=== PATIENT | female | born 1955 | race American Indian/Alaskan Native ===

== ENCOUNTER 2019-06-24 08:42 | Outpatient (CLI) | payer MEDICARE ==
--- NOTE | 2019-06-24 10:04 | Mammography Report ---
DIGITAL SCREENING MAMMOGRAM WITH CAD, 06/24/2019 INDICATION: Routine screening mammography. History of right breast cancer status post right partial m astectomy 02/10/2019 TECHNIQUE: Digital bilateral 2D mammography was obtained in the craniocaudal and mediolateral obliq ue projections. This examination was interpreted with the benefit of Computer-Aided Detection analysi s. COMPARISON: 12/23/2018 right mammogram and no comparison mammogram of the left breast FINDINGS: Breast Density: The breasts are heterogeneously dense, which may obscure small masses. Right upper outer postsurgical scar is new compared to the last mammogram. A right upper outer biopsy clip is distant from the scar and there is no mammographic abnormality at the clip. Bilateral circum scribed asymmetries require additional imaging. No suspicious calcifications of either breast. IMPRESSION: Bilateral asymmetries require additional imaging. Recommend recall for bilateral spot com pression views and bilateral breast ultrasound if needed. Follow up recommendation: Routine yearly Category 0: Incomplete. Needs additional imaging evaluation and/or prior mammograms for comparison. A "normal" or negative report should not discourage follow up or biopsy of a clinically significant f inding. A written summary of these findings will be mailed to the patient. The patient will be entered into a mammography reporting system which will generate a reminder letter for the patient's next appointmen t at the appropriate interval. The [employer] recommends yearly mammograms starting at age 40 and continuing as l noel as a woman is in good health. Breast MRI is recommended for women with an approximate 20-25% or greater lifetime risk of breast cancer, including women with a strong family history of breast or ova cara cancer or who have been treated for Hodgkin's disease. Signer Name: Eliezer Hernandez MD Signed: 06/24/2019 9:59 AM Workstation Name: [id number]
== END 2019-06-24 08:43 | disposition home or self-care (01) ==
LOC: SPVWC 08:42
PROVIDERS: ATTEND Surgery
DX: Z12.31 Encounter for screening mammogram for malignant neoplasm of breast (principal); N64.89 Other specified disorders of breast
CPT/HCPCS: 77067

== ENCOUNTER 2019-07-08 08:19 | Outpatient (CLI) | payer MEDICARE ==
--- NOTE | 2019-07-08 10:50 | Mammography Report ---
BILATERAL DIGITAL DIAGNOSTIC MAMMOGRAM WITH CAD 07/08/2019 BILATERAL COMPLETE BREAST ULTRASOUND INDICATION: Recall to evaluate bilateral mammographic asymmetries. f/u abnormal mammogram TECHNIQUE: Digital bilateral mammographic imaging was performed. Spot compression views were obtaine d. Complete ultrasound of all four (4) quadrants was performed. This examination was interpreted with the benefit of Computer-Aided Detection (CAD) analysis. COMPARISON: 06/24/2019 screening mammogram FINDINGS: Breast Density: The breasts are heterogeneously dense, which may obscure small masses. MAMMOGRAPHIC FINDINGS: Bilateral mammographic asymmetries persist with spot compression. ULTRASOUND FINDINGS: Complete sonographic evaluation of all 4 quadrants and retroareolar region was p erformed. Ultrasound of the right breast demonstrated an oval complex cyst at 9:30 o'clock 3 cm from the nippl e measuring 7 x 5 x 6 mm. A 4 mm benign cyst at 10:00 8 cm from the nipple. Ultrasound of the left breast demonstrated an irregular hypoechoic solid mass at 6:00 4 cm from the n ipple measuring 6 x 4 x 7 mm. It correlates with a persistent mammographic asymmetry on the CC spot c ompression view. Several small scattered benign cysts of the left breast. Ultrasound of the left axil la demonstrated a suspicious lymph node with no central fat measuring 2.0 x 1.9 x 2.2 cm. IMPRESSION: A suspicious 6 x 4 x 7 mm left breast mass at 6:00 4 cm from the nipple and a suspicious left axillary lymph node. Recommend ultrasound-guided needle biopsies at both sites. Benign cysts of the right breast. I discussed the findings and the recommendation for 2 needle biopsies on the left side with the patie nt at the time of the exam. Follow up recommendation: Biopsy BI-RADS Category 4: Suspicious for Malignancy. A "normal" or negative report should not discourage follow up or biopsy of a clinically significant f inding. A written summary of these findings will be mailed to the patient. The patient will be entered into a mammography reporting system which will generate a reminder letter for the patient's next appointmen t at the appropriate interval. According to the [employer], yearly mammograms are recommended starting at age 40 and continuing as long as a woman is in good health. Breast MRI is recommended for women with an villa roximately 20-25% or greater lifetime risk of breast cancer, including women with a strong family his tory of breast or ovarian cancer and women who have been treated for Hodgkin's disease. Signer Name: Eliezer Hernandez MD Signed: 07/08/2019 10:45 AM Workstation Name: [id number]
== END 2019-07-08 08:20 | disposition home or self-care (01) ==
LOC: SPVWC 08:19
PROVIDERS: ATTEND Surgery
DX: N60.01 Solitary cyst of right breast (principal)
CPT/HCPCS: 77066

== ENCOUNTER 2019-07-23 08:05 | Outpatient (CLI) | payer MEDICARE ==
--- NOTE | 2019-07-23 11:47 | Ultrasound Report ---
ULTRASOUND-GUIDED NEEDLE CORE BIOPSY LEFT BREAST WITH CLIP PLACEMENT AND ULTRASOUND-GUIDED NEEDLE COR E BIOPSY LEFT AXILLARY LYMPH NODE WITH CLIP PLACEMENT CLINICAL: A suspicious 7 mm irregular left breast mass at 6:00 4 cm from the nipple. FINDINGS: The procedure was explained to the patient and informed consent was obtained. Ultrasound demonstrated the previously identified lesion and the suspicious left axillary lymph node. . I marked the breast with a felt tip marker and a timeout was called. The skin was prepped with Chloro -Prep and anesthetized with 1% lidocaine. Using ultrasound guidance, 2% lidocaine with epinephrine for deep anesthesia and an 18-gauge Achieve biopsy device, needle core biopsy of the left axillary lymph node was performed. 3 cores were obtaine d and placed in formalin. A hydromark clip was placed within the lymph node. Hemostasis was achieved with minimal effort. Attention was then given to the left breast mass. Needle core biopsy was performed through small dermatotomy at 6:00 4 cm from the nipple using ultraso und guidance, 2% lidocaine with epinephrine for deep anesthesia and a 14-gauge Achieve biopsy device. Multiple cores were obtained and placed in formalin. A hydromark clip was deployed within the lesion . The patient tolerated the procedure well and there were no apparent complications. Hemostasis was ach ieved with minimal effort and sterile dressings were applied. A post procedure mammogram demonstrated successful clip deployment. However, the clip position is dis cordant with the original mammographic density which is more lateral than the clip by approximately 4 cm. She left the department in good condition and was given instructions for wound care and follow-u p. IMPRESSION: 1. Uncomplicated ultrasound guided needle core biopsy with clip placement left axillary lymph node an d uncomplicated ultrasound-guided needle core biopsy with clip placement left breast. 2. Discordant clip placement suggests that there may be an additional lesion to biopsy. Further francis p would depend upon the results of this biopsy. Signer Name: Eliezer Hernandez MD Signed: 07/23/2019 11:43 AM Workstation Name: [id number]
--- NOTE | 2019-07-23 13:11 | Mammography Report ---
DIGITAL DIAGNOSTIC MAMMOGRAM WITH CAD, 07/23/2019 INDICATION: POST BX, LT CLIP TECHNIQUE: Digital left mammographic imaging was performed. This examination was interpreted with the benefit of Computer-aided Detection analysis. COMPARISON: 07/08/2019 FINDINGS: Breast Density: The breast is heterogeneously dense, which may obscure small masses. An inner biopsy clip correlates with the site of the ultrasound biopsy. The clip location is approxim ately 4 cm medial to the originally described mammographic abnormality. IMPRESSION: Successful clip deployment but discordant clip location compared to the original mammogra phic abnormality. The need for further imaging may depend upon the result of this biopsy. Follow up recommendation: No recall. Post biopsy imaging. A "normal" or negative report should not discourage follow up or biopsy of a clinically significant f inding. A written summary of these findings will be mailed to the patient. The patient will be entered into a mammography reporting system which will generate a reminder letter for the patient's next appointmen t at the appropriate interval. According to the [employer], yearly mammograms are recommended starting at age 40 and continuing as long as a woman is in good health. Breast MRI is recommended for women with an villa roximately 20-25% or greater lifetime risk of breast cancer, including women with a strong family his tory of breast or ovarian cancer and women who have been treated for Hodgkin's disease. Signer Name: Eliezer Hernandez MD Signed: 07/23/2019 1:07 PM Workstation Name: [id number]
== END 2019-07-23 08:06 | disposition home or self-care (01) ==
LOC: SPVWC 08:05
PROVIDERS: ATTEND Surgery
DX: N63.24 Unspecified lump in the left breast, lower inner quadrant (principal); I89.8 Other specified noninfective disorders of lymphatic vessels and lymph nodes; R92.8 Other abnormal and inconclusive findings on diagnostic imaging of breast; E78.00 Pure hypercholesterolemia, unspecified; I10 Essential (primary) hypertension; G47.30 Sleep apnea, unspecified; K21.9 Gastro-esophageal reflux disease without esophagitis; E66.9 Obesity, unspecified; E05.90 Thyrotoxicosis, unspecified without thyrotoxic crisis or storm; Z79.899 Other long term (current) drug therapy; Z88.5 Allergy status to narcotic agent; Z90.710 Acquired absence of both cervix and uterus; Z96.653 Presence of artificial knee joint, bilateral; Z98.890 Other specified postprocedural states
CPT/HCPCS: 38505; 76942; 88305

== ENCOUNTER 2019-09-03 10:19 | Outpatient (CLI) | payer MEDICARE ==
--- NOTE | 2019-09-03 17:01 | Magnetic Resonance Report ---
BILATERAL BREAST MR WITHOUT AND WITH GADOLINIUM INDICATION: Recent benign ultrasound-guided left needle biopsy and benign ultrasound-guided biopsy o f a left axillary lymph node. This study is being done because the clip location was discordant with the original mammographic asymmetry identified on 07/08/2019. She also has a history of a benign surgi shorty excision for fibroadenoma. COMPARISONS: 07/08/2019 bilateral mammogram and bilateral breast ultrasound TECHNIQUE: Axial 1.0 mm T1 without, axial high-resolution 2.0 mm T2 and axial 1.0 mm dynamic vibrant high-resolution postcontrast T1 fat saturation sequences on a 1.5 Chapis magnet. The examination was p erformed with an 8-channel dedicated [employer] breast coil. Post-processing with CAD and subtraction was performed on an [employer] workstation. 19 cc of MultiHance was injected without incident for the con trast portion of the exam. Consent was obtained prior to the administration of the contrast. FINDINGS: The quality of the exam is somewhat compromised by motion during the contrast portion of th e exam. RIGHT BREAST: Minimal background parenchymal enhancement. No mass or suspicious enhancement. Benign p osterior postsurgical scar at 9:00. No suspicious lymph nodes. LEFT BREAST: Moderate background parenchymal enhancement. The overall enhancement of the left breast is greater than the right with a diffusely more intense enhancement. Color coding is predominantly re d for the left breast and predominantly blue for the right breast. Lesion 1 is an oval enhancing lesi on of the upper inner quadrant 6.4 cm from the nipple and 8.3 cm from the chest wall. This is probabl y a benign intraparenchymal lymph node with heterogeneous enhancement and 51% type III washout. Lesio n 2 is a similar lesion which is probably a benign intraparenchymal lymph node measuring 9.2 x 7.3 x 3.0 mm. Is located in the lower outer quadrant 8.9 cm from the nipple and 5.3 cm from the chest wall. It demonstrates heterogeneous enhancement with 31% type III washout. Lesion 3 is a similar enhancing lesion in the lower outer quadrant 6.9 cm from the nipple and 7.2 cm from the chest wall. It also coulter s morphology typical of a benign intraparenchymal lymph node. It demonstrates heterogeneous enhanceme nt with 22% type III washout. Multiple enhancing lymph nodes in the left axilla. The largest measures 2 cm and correlates with the recently biopsied benign lymph node. IMPRESSION: 1. 3 probably benign lesions in the left breast with characteristics suggestive of benign intraparenc hymal lymph nodes. This pattern fits with the left axillary lymphadenopathy and the overall increased enhancement of the left breast suggestive of a benign process. Recommend targeted left breast ultras ound for evaluation of these 3 lesions. If these lesions are not identified or cannot be confirmed to be benign by ultrasound, recommend 6 month follow-up MRI. 2. Negative right breast with benign postsurgical scar. BI-RADS Category 0: Needs additional imaging A normal MRI does not exclude the presence of some forms of breast malignancy as literature reports s uggest that some forms of ductal carcinoma in situ or lobular carcinoma, particularly, may not be det ected on MRI. The sensitivity and specificity of MRI for cancers under 5 mm may be reduced. MRI does not replace the recommendation for annual conventional mammographic evaluation and should be used as an adjunct to mammography and physical examination as necessary. Signer Name: Eliezer Hernandez MD Signed: 09/03/2019 4:57 PM Workstation Name: [id number]
== END 2019-09-03 10:20 | disposition home or self-care (01) ==
LOC: SPVIMAG 10:19
PROVIDERS: ATTEND Surgery
DX: N64.89 Other specified disorders of breast (principal); R59.0 Localized enlarged lymph nodes; R92.2 Inconclusive mammogram
CPT/HCPCS: A9577; C8908; 77049

== ENCOUNTER 2019-09-23 09:52 | Outpatient (CLI) | payer MEDICARE ==
--- NOTE | 2019-09-24 11:52 | Ultrasound Report ---
LEFT BREAST ULTRASOUND HISTORY: Abnormal left breast MRI COMPARISON: 09/03/2019 MRI FINDINGS: Ultrasound of the left breast demonstrated an irregular solid hypoechoic mass at 10:00 7 cm from the nipple measuring 7 x 6 x 5 mm. It appears to correlate with lesion 1 and does not have feat ures of a benign intramammary lymph node. An oval irregular solid heterogeneous hypoechoic mass at 4: 30 o'clock 5 cm from the nipple measures 11 x 11 x 7 mm. It appears to correlate with lesion 3 on the MRI and does not have features of a benign intramammary lymph node. A biopsy clip at 5:30 o'clock 4 cm from the nipple. An irregular benign cyst at 6:00 5 cm from the nipple measures 5 x 6 x 3 mm. A pr obable complex cyst at 10:00 5 cm from the nipple measures 6 x 3 x 4 mm. IMPRESSION: 1. Suspicious masses at 10:00 7 cm from the nipple and at 4:30 o'clock 5 cm from the nipple. Recommen d ultrasound-guided needle biopsy of these lesions. 2. A probable complex cyst at 10:00 5 cm from the nipple. Recommend ultrasound-guided needle aspirati on. BIRADS 4: Suspicious abnormality. Signer Name: Eliezer Hernandez MD Signed: 09/24/2019 11:48 AM Workstation Name: [id number]
== END 2019-09-23 09:53 | disposition home or self-care (01) ==
LOC: SPVWC 09:52
PROVIDERS: ATTEND Surgery
DX: R92.8 Other abnormal and inconclusive findings on diagnostic imaging of breast (principal)

== ENCOUNTER 2020-01-16 06:58 | Day surgery (SDC) | payer MEDICARE ==
[~2020-01-16 06:58] MED LIST: BACTERIOSTATIC SODIUM CHLORIDE 0.9% 30 ML VIAL INFILTRATI ONE; CELECOXIB 200 MG CAP PO NR; GABAPENTIN 300 MG CAP PO NR; LACTATED RINGERS 1,000 ML IV SCH; MAGNESIUM OXIDE 400 MG TAB PO SCH; MIDAZOLAM 2 MG/2 ML INJ IV NR; ceFAZolin/Water 2 GM/20 ML 2 GM/20 ML SYRINGE IV NR
--- NOTE | 2020-01-16 07:35 | Anesthesia Consultation ---
Anesthesia Consult and Med Hx Date of service: 01/16/20 - Airway Anesthetic Teeth Evaluation: Partials ROM Head & Neck: Adequate Mental/Hyoid Distance: Adequate Mallampati Class: Class II Intubation Access Assessment: Probably Good (previous easy intubation Mil 2) - Pulmonary Exam CTA: Yes - Cardiac Exam Cardiac Exam: RRR - Pre-Operative Health Status ASA Pre-Surgery Classification: ASA3 Proposed Anesthetic Plan: General - Pulmonary Hx Smoking: No Hx Respiratory Symptoms: No Hx Sleep Apnea: Yes (compliant with CPAP) - Cardiovascular System Hx Hypertension: Yes (took amlodipine this morning) Hx Heart Attack/AMI: No Hx Percutaneous Transluminal Coronary Angioplasty (PTCA): No Hx Cardia Arrhythmia: No - Central Nervous System CVA: No - Gastrointestinal Hx Gastroesophageal Reflux Disease: Yes (took protonix this morning) - Endocrine Hx Renal Disease: No Hx Liver Disease: No Hx Insulin Dependent Diabetes: No Hx Non-Insulin Dependent Diabetes: No Hx Hyperthyroidism: Yes (stable on methimazole and propanolol) - Other Systems Hx Obesity: Yes (BMI 35) - Additional Comments Anesthesia Medical History Comments: Will give home dose propanolol in preop
--- NOTE | 2020-01-16 07:35 | Anesthesia Day of Surgery ---
Anesthesia Day of Surgery - Day of Surgery Patient Examined: Yes Patient H&P Reviewed: Yes Patient is NPO: Yes Beta Blockers: Yes (home dose propanolol in preop)
[2020-01-16] MEDS ORDERED: LIDOCAINE (1%) 10 MG/1 ML VIAL 20 ML MDV ONE ×2 (07:38→07:55)
[2020-01-16] MEDS ORDERED: BUPIVACAINE/PF (0.25%) 2.5 MG/ML 10 ML VIAL INFILTRATI ONE ×2 (07:56→08:47)
[2020-01-16] MEDS ORDERED: PROPRANOLOL LA 60 MG CAP PO ONE (08:00)
[2020-01-16] MEDS ORDERED: ONDANSETRON 4 MG/2 ML INJ ONE (08:24)
[2020-01-16] MEDS ORDERED: dexAMETHasone 20 MG/5 ML VIAL ONE (08:24)
[2020-01-16] MEDS ORDERED: LIDOCAINE MPF (2%) 20 MG/1 ML VIAL 5 ML ONE (08:24)
[2020-01-16] MEDS ORDERED: fentaNYL 100 MCG/2 ML INJ ONE (08:25)
[2020-01-16] MEDS ORDERED: propofoL 200 MG/20 ML VIAL IV ONE (08:25)
[2020-01-16] MEDS ORDERED: LIDOCAINE (1%) 10 MG/1 ML VIAL 20 ML MDV INFILTRATI ONE (08:48)
--- NOTE | 2020-01-16 09:18 | Operative Report ---
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 Recommendations are to proceed with left breast excisional biopsy to rule out malignancy. She wished to proceed with the above procedure. Procedure in detail: The patient was taken to radiology for wire placement for localization of known area of concern of both areas. Patient was then taken to the operating room. Gen. anesthesia was administered. Left breast and axilla were prepped and draped in the normal sterile operative fashion. The wires were identified. Timeout was performed. Ultrasound was used as well to identify clips. Attention was then taken towards the left breast at 10:00 position lesion first. A periareolar breast incision was made around the 10:00 position with a 15 blade knife and dissection taken down to the subcutaneous tissues. First began raising of the anterior flap with removal of the wire from the skin with dissection taken down posteriorly past the wire, followed by raising of the inferior flap, medial flap, lateral and superior flap with all flaps taken down posteriorly past the wire. The breast area of concern was appropriately removed posteriorly with the aid of the Bovie cautery. The wire was not encountered. Specimen was marked and then sent to pathology and radiology; radiograph specimen with wire and clip present. Breast cavity was irrigated and hemostasis was obtained. The posterior deep breast tissues were approximated and closed using interrupted 3-0 Vicryl. The subcutaneous tissues were approximated and closed using interrupted 3-0 Vicryl followed by closing of the skin with a running 4-0 Monocryl and skin affix. Attention was then taken towards breast lesion at 4:30 position. A lateral breast incision was made around the 4:00 position with a 15 blade knife and dissection taken down to the subcutaneous tissues. First began raising of the lateral flap with removal of the wire from the skin with dissection taken down posteriorly past the wire, followed by raising of the inferior flap, medial flap, and superior flap with all flaps taken down posteriorly past the wire. The breast area of concern was appropriately removed posteriorly with the aid of the Bovie cautery. The wire was not encountered. Specimen was marked and then sent to pathology and radiology; radiograph specimen with wire and clip present. Breast cavity was irrigated and hemostasis was obtained. The posterior deep breast tissues were approximated and closed using interrupted 3-0 Vicryl. The subcutaneous tissues were approximated and closed using interrupted 3-0 Vicryl followed by closing of the skin with a running 4-0 Monocryl and skin affix. The patient tolerated surgery very well and she was awaken from anesthesia without any complication and transported to PACU in good condition.
--- NOTE | 2020-01-16 09:20 | Short Stay Summary ---
Short Stay Documentation Date of service: 01/16/20 - History H&P: obtained from office - Allergies and Medications Current Medications: Allergies lisinopril Allergy (Verified 01/08/20 12:19) Angioedema gabapentin Adverse Reaction (Verified 01/16/20 07:38) Headache PT STATES SEVERE HEADACHE WITH THIS MED morphine Adverse Reaction (Verified 01/08/20 12:19) Itching nitroglycerin Adverse Reaction (Verified 01/08/20 12:19) Headache oxycodone Adverse Reaction (Verified 01/08/20 12:19) Itching Home Medications Medication Instructions Recorded Confirmed Last Taken Type Albuterol Mdi (or & Nicu Only) 2 puff IH QID PRN 02/04/19 01/08/20 01/16/20 05:30 History [Proair] Methimazole [Tapazole] 10 mg PO DAILY 02/04/19 01/08/20 01/15/20 History Pantoprazole [Protonix] 40 mg PO QDAY 02/04/19 01/08/20 01/16/20 05:30 History Propranolol HCl [Inderal Xl] 120 mg PO DAILY 02/04/19 01/08/20 02/10/19 05:30 History Rosuvastatin Calcium [Crestor] 20 mg PO DAILY 02/04/19 01/08/20 01/15/20 History Triamcinolone 0.1% [Kenalog 0.1% 1 applic TP TID 02/04/19 01/08/20 01/15/20 History OINT] allopurinoL [Zyloprim] 300 mg PO QDAY 02/04/19 01/08/20 01/15/20 History calcitrioL [Rocaltrol] 0.25 mcg PO DAILY 02/04/19 01/08/20 01/15/20 History amLODIPine [Norvasc] 10 mg PO DAILY 01/08/20 01/08/20 01/16/20 05:30 History Active Medications Celecoxib (Celebrex) 200 mg PO PREOP NR Stop: 01/16/20 23:00 Last Admin: 01/16/20 08:45 Dose: 200 mg Documented by: Cefazolin Sodium (Ancef/Sterile Water 2 Gm/20 Ml) 2 gm in 20 mls @ 80 mls/hr IV PREOP NR; Protocol Stop: 01/16/20 23:59 Lactated Ringer's (Lactated Ringers) 1,000 mls @ 100 mls/hr IV DIRECT BEN Stop: 01/16/20 23:59 Magnesium Oxide (Mag-Ox) 400 mg PO PREOP BEN Stop: 01/16/20 23:00 Last Admin: 01/16/20 08:45 Dose: 400 mg Documented by: Midazolam HCl (Versed) 2 mg IV PREOP NR Stop: 01/16/20 23:00 - Brief post op/procedure progress note Date of procedure: 01/16/20 Pre-op diagnosis: Left breast papillomas x2 Post-op diagnosis: same Procedure: Left breast needle localization excisional biopsy Anesthesia: GETA Findings: Left wires and clips present within radiograph specimen Surgeon: GILDA RAM Estimated blood loss: minimal Pathology: list (left breast excisional biopsy) Specimen disposition: to lab Condition: stable - Disposition Condition at discharge: Good Disposition: DC-01 TO HOME OR SELFCARE Short Stay Discharge Plan Activity: other (no heavy lifting) Diet: regular Wound: keep clean and dry (may shower in 48 hours; no baths, pools or lakes; do not rub or scrub incision; wear breast binder) Follow up with: GILDA RAM MD [Staff Physician] - 7 Days Prescriptions: traMADoL [Ultram 50 MG tab] 50 mg PO Q6HR PRN #20 tablet PRN Reason: Pain
[2020-01-16] MEDS ORDERED: BACITRACIN ZINC OINT 28.4 GM TP ONE ×2 (11:31→11:49)
[2020-01-16] MEDS ORDERED: LACTATED RINGERS 1,000 ML ONE (12:10)
--- NOTE | 2020-01-16 14:14 | Post Anesthesia Evaluation ---
- Post Anesthesia Evaluation Patient Participated: Yes Airway Patent: Yes Stable Respiratory Function: Yes Nausea/Vomiting: No Temp > 96.8F: Yes Pain Manageable: Yes Adequeate Hydration: Yes Anesthesia Complications: No
[2020-01-16 15:32] VITALS: BP 125/66
--- NOTE | 2020-01-19 08:07 | Mammography Report ---
Needle localization specimens INDICATION: Evaluation of needle localization specimens FINDINGS/IMPRESSION: There are 2 separate localization wires which are completely contained in each r espective sample. One of the wires also contains a U-shaped clip with variegated ends and the other w vic which is kinked contains a tiny biopsy marker. Both wires are submitted in their entirety and eac h respective marker is completely contained within each sample. Signer Name: Mina Muñoz MD Signed: 01/19/2020 8:03 AM Workstation Name: [id number]
--- NOTE | 2020-01-19 08:11 | Mammography Report ---
Examination: Mammographic guided left breast needle localization CLINICAL INFORMATION: Patient with 4 previous biopsies in the left breast presents for bracketed wire localization. Comparison: Diagnostic imaging from 11/05/2019. PROCEDURE: The risks, benefits and indications to the procedure were discussed with the patient. She agreed to p troy with both verbal and written consent. A timeout procedure was performed using two patient iden tifiers. The breast was prepped with Chlorhexidine 1% in the usual sterile fashion. Approximately 10 cc of Lid ocaine 1% was used for local anesthesia at each site. Under direct digital mammographic guidance, a l ocalization wire was placed in satisfactory position at each respective target with distal tip derrell sing each targeted lesion. Post-biopsy mammogram confirms satisfactory positioning of each localizati on wire. The wires were then secured to the skin with a sterile dressing. One of the wires was placed from a medial approach and the other placed from a lateral approach. The patient tolerated procedure without difficulty. No complications were encountered. IMPRESSION: 1. Satisfactory bracketed wire localization for 2 left breast targets as above. Signer Name: Mina Muñoz MD Signed: 01/19/2020 8:07 AM Workstation Name: [id number]
== END 2020-01-16 13:35 | disposition home or self-care (01) ==
LOC: OR 06:58
PROVIDERS: ATTEND Surgery
DX: D24.2 Benign neoplasm of left breast (principal); Z20.828 Contact with and (suspected) exposure to other viral communicable diseases; E78.00 Pure hypercholesterolemia, unspecified; I10 Essential (primary) hypertension; G47.30 Sleep apnea, unspecified; K21.9 Gastro-esophageal reflux disease without esophagitis; E66.9 Obesity, unspecified; E05.90 Thyrotoxicosis, unspecified without thyrotoxic crisis or storm; Z90.710 Acquired absence of both cervix and uterus; Z88.5 Allergy status to narcotic agent; Z79.899 Other long term (current) drug therapy; Z68.35 Body mass index [BMI] 35.0-35.9, adult; Z96.652 Presence of left artificial knee joint; Z98.890 Other specified postprocedural states; Z88.8 Allergy status to other drugs, medicaments and biological substances
CPT/HCPCS: 19125; 19126; 19281; 19282; 76098; 88307; J0690; J1100; J2250; J2405; J2704; J3010; J7120; U0003

== ENCOUNTER 2020-06-29 08:45 | Outpatient (CLI) | payer MEDICARE ==
--- NOTE | 2020-06-29 09:25 | Mammography Report ---
DIGITAL SCREENING MAMMOGRAM WITH CAD, 06/29/2020 CLINICAL INFORMATION / INDICATION: Routine screening mammography. SCREENING MAMMO TECHNIQUE: Digital bilateral 2D mammography was obtained in the craniocaudal and mediolateral obliqu e projections. This examination was interpreted with the benefit of Computer-Aided Detection analysis . COMPARISON: 06/24/2019 through 01/16/2020. FINDINGS: Breast Density: There are scattered areas of fibroglandular density. Right breast scarring and a right biopsy clip are again noted. There is new scarring in the left ivania st as well as a new left biopsy clip. I see no evidence of a mass or suspicious calcifications. No ne w abnormality is seen. IMPRESSION: No mammographic evidence of malignancy. Follow up recommendation: Routine yearly BI-RADS Category 2: Benign. A "normal" or negative report should not discourage follow up or biopsy of a clinically significant f inding. A written summary of these findings will be mailed to the patient. The patient will be entered into a mammography reporting system which will generate a reminder letter for the patient's next appointmen t at the appropriate interval. The [employer] recommends yearly mammograms starting at age 40 and continuing as l noel as a woman is in good health. Breast MRI is recommended for women with an approximate 20-25% or greater lifetime risk of breast cancer, including women with a strong family history of breast or ova cara cancer or who have been treated for Hodgkin's disease. Signer Name: Geronimo Rain MD Signed: 06/29/2020 9:20 AM Workstation Name: [id number]
== END 2020-06-29 08:46 | disposition home or self-care (01) ==
LOC: SPVWC 08:45
PROVIDERS: ATTEND Surgery
DX: Z12.31 Encounter for screening mammogram for malignant neoplasm of breast (principal)
CPT/HCPCS: 77067

== ENCOUNTER 2020-07-28 09:38 | Outpatient (CLI) | payer MEDICARE ==
--- NOTE | 2020-07-28 13:08 | Magnetic Resonance Report ---
Bilateral breast MR without and with contrast. History: History of left breast papilloma with focal atypia. Status post bilateral surgical excisions . Comparison: 06/29/2020, 09/03/2019. Technique: Multiplanar multisequence MR images of the breast were obtained before and after the intra venous administration of 17 mL of Clariscan contrast agent. Post processing analysis and review was p erformed on a separate computer workstation. Findings: Breast composition is scattered fibroglandular. There is moderate to marked background parenchymal en hancement which along with the presence of multiple scattered enhancing foci decreases the sensitivit y of this exam. RIGHT BREAST: Stable area of postsurgical change in the right upper outer posterior breast. No discre te enhancing mass, dominant focus, or other abnormal enhancement is identified within the right breas t. LEFT BREAST: Postsurgical changes within the lateral posterior and medial mid breast are noted. No di screte enhancing mass, dominant focus, or other abnormal enhancement is identified within either ivania st. Multiple enlarged left axillary lymph nodes are again noted which measure up to 2.1 x 2.1 cm. These c an be seen on the 09/03/2019 MRI and there appears to be little change. Of note, patient has a history of left axillary lymph node biopsy which was found to be benign. No enlarged right axillary lymph no mayco. No abnormal internal mammary lymph nodes. Impression: Postsurgical changes in both breasts without abnormal enhancement to suggest the presence of breast m alignancy. There are multiple enlarged left axillary lymph nodes which are similar to 09/03/2019 MRI. Of note, th e patient has underwent left axillary lymph node biopsy with results found to be benign. The left axi llary lymphadenopathy is of unclear significance or etiology. Question whether patient has a chronic illness or systemic inflammatory process. BIRADS 2: Benign A normal MRI does not exclude the presence of some forms of breast malignancy as literature reports s uggest that some forms of ductal carcinoma in situ or lobular carcinoma, particularly, may not be det ected on MRI. The sensitivity and specificity of MRI for cancers under 5 mm may be reduced. MRI does not replace the recommendation for annual conventional mammographic evaluation and should be used as an adjunct to mammography and physical examination as necessary. Signer Name: Prashant Plummer MD Signed: 07/28/2020 1:04 PM Workstation Name: [id number]
== END 2020-07-28 09:39 | disposition home or self-care (01) ==
LOC: SPVIMAG 09:38
PROVIDERS: ATTEND Surgery
DX: N60.81 Other benign mammary dysplasias of right breast (principal); N60.82 Other benign mammary dysplasias of left breast; Z86.000 Personal history of in-situ neoplasm of breast
CPT/HCPCS: A9575; C8908; 77049

== ENCOUNTER 2021-07-05 09:00 | Outpatient (CLI) | payer MEDICARE ==
--- NOTE | 2021-07-06 11:59 | Mammography Report ---
DIGITAL SCREENING MAMMOGRAM WITH CAD, 07/05/2021 CLINICAL INFORMATION / INDICATION: Routine screening TECHNIQUE: Digital bilateral 2D mammography was obtained in the craniocaudal and mediolateral obliqu e projections. This examination was interpreted with the benefit of Computer-Aided Detection analysis . COMPARISON: 06/29/2020 FINDINGS: Breast Density: The breasts are heterogeneously dense, which may obscure small masses. No dominant mass, suspicious calcifications, or architectural distortion in either breast. Surgical and biopsy changes are again seen. Left density is stable. IMPRESSION: No mammographic evidence of malignancy. Follow up recommendation: Routine yearly BI-RADS Category 2: BENIGN. A "normal" or negative report should not discourage follow up or biopsy of a clinically significant f inding. A written summary of these findings will be mailed to the patient. The patient will be entered into a mammography reporting system which will generate a reminder letter for the patient's next appointmen t at the appropriate interval. The [employer] recommends yearly mammograms starting at age 40 and continuing as l noel as a woman is in good health. Breast MRI is recommended for women with an approximate 20-25% or greater lifetime risk of breast cancer, including women with a strong family history of breast or ova cara cancer or who have been treated for Hodgkin's disease. Signer Name: Thiago Jeong MD Signed: 07/06/2021 11:54 AM Workstation Name: [id number]
== END 2021-07-05 09:01 | disposition home or self-care (01) ==
LOC: SPVWC 09:00
PROVIDERS: ATTEND Surgery
DX: Z12.31 Encounter for screening mammogram for malignant neoplasm of breast (principal); N64.89 Other specified disorders of breast
CPT/HCPCS: 77067